=== PATIENT | female | born 1975 | race Caucasian/White ===

== ENCOUNTER 2017-02-25 09:20 | Emergency (ER) | payer OTHER, MEDICAID | END 2017-02-25 11:15 | disposition home or self-care (01) | LOC: FTE 09:20 | DX: J06.9 Acute upper respiratory infection, unspecified (principal); R07.9 Chest pain, unspecified | CPT/HCPCS: 93005; 99284-25 ==

== ENCOUNTER 2017-05-21 11:47 | Emergency (ER) | payer OTHER ==
[2017-05-21 13:07] LABS: ADD MAN DIFF? NO
[2017-05-21 13:10] LABS: BASOPHILS % 0.2 % (0.0-2.0); EOSINOPHILS # 0.1 10^3/ul (0.0-0.5); HEMATOCRIT 39.7 % (37.0-47.0); HEMOGLOBIN 13.9 g/dl (12.0-16.0); LYMPHOCYTES # 1.4 10^3/ul (0.8-2.9); LYMPHOCYTES % 13.9 % (15.0-51.0); MEAN CORPUSCULAR HEMOGLOBIN 30.4 pg (29.0-33.0); MEAN CORPUSCULAR VOLUME 86.9 fl (82.0-101.0); MEAN PLATELET VOLUME 10.5 fl (7.4-10.4); MONOCYTE # 0.7 10^3/ul (0.3-0.9); MONOCYTES % 7.6 % (0.0-11.0); NEUTROPHIL # 7.5 10^3/ul (1.6-7.5); PLATELET COUNT 306 10^3/UL (140-415); RED BLOOD COUNT 4.57 10^6/ul (4.20-5.40); RED CELL DISTRIBUTION WIDTH 13.4 % (11.5-14.5)
[2017-05-21 13:10] LABS: WHITE BLOOD COUNT 9.8 10^3/ul (4.8-10.8)
[2017-05-21] MEDS: SOD CHLORIDE 0.9% 1,000 ML IV (13:13)
[2017-05-21] MEDS: ONDANSETRON 4 MG INJ IV (13:15)
[2017-05-21] MEDS: HYDROmorphONE 0.5 MG/0.5 ML SYG IV (13:16)
[2017-05-21] MEDS: FAMOTIDINE 20 MG INJ IV (13:16)
[2017-05-21] MEDS: ACETAMINOPHEN 325 MG TAB PO (13:16)
[2017-05-21 13:50] LABS: ADD UMIC YES; UR ASCORBIC ACID NEGATIVE (NEGATIVE); UR BACTERIA FEW /HPF (NONE SEEN); UR BILIRUBIN (Dip) NEGATIVE (NEGATIVE); UR BLOOD (Dip) NEGATIVE (NEGATIVE); UR CLARITY CLEAR (CLEAR); UR COLOR YELLOW (YELLOW); UR GLUCOSE (Dip) NEGATIVE (NEGATIVE); UR KETONES (Dip) NEGATIVE (NEGATIVE); UR LEUKOCYTE ESTERASE (Dip) 2+ Leu/ul (NEGATIVE); UR NITRITE (Dip) NEGATIVE (NEGATIVE); UR RBC 3 /HPF (0-5); UR SPECIFIC GRAVITY (Dip) 1.011 (1.003-1.030); UR TOTAL PROTEIN (Dip) NEGATIVE (NEGATIVE); UR UROBILINOGEN (Dip) NEGATIVE (NEGATIVE); UR WBC 19 /HPF (0-5)
[2017-05-21 14:16] LABS: ALANINE AMINOTRANSFERASE 482 IU/L (13-69); ALBUMIN 3.8 g/dl (3.3-4.9); ALBUMIN/GLOBULIN RATIO 1.08; ALKALINE PHOSPHATASE 394 IU/L (42-121); ANION GAP 16 (8-16); ASPARTATE AMINO TRANSFERASE 256 IU/L (15-46); BILIRUBIN,INDIRECT 0.7 mg/dl (0-1.1); BILIRUBIN,TOTAL 0.7 mg/dl (0.2-1.3); BLOOD UREA NITROGEN 9 mg/dl (7-20); CALCIUM 8.7 mg/dl (8.4-10.2); CARBON DIOXIDE 22 mmol/L (21-31); CHLORIDE 109 mmol/L (97-110); CREATININE 0.68 mg/dl (0.44-1.00); GLUCOSE 131 mg/dl (70-220); LIPASE 254 U/L (23-300); POTASSIUM 3.5 mmol/L (3.5-5.1); SODIUM 143 mmol/L (135-144); TOTAL PROTEIN 7.3 g/dl (6.1-8.1)
[2017-05-21] MEDS: CEFTRIAXONE 1 GM/50 ML (PMX) 50 ML IVPB (14:19)
== END 2017-05-21 16:29 | disposition home or self-care (01) ==
LOC: FTE 11:47
DX: N39.0 Urinary tract infection, site not specified (principal); R74.0 Nonspecific elevation of levels of transaminase and lactic acid dehydrogenase [LDH]
CPT/HCPCS: 36415; 76705; 80053; 81001; 81025; 83690; 85025; 96374; 96375; 99285-25

== ENCOUNTER 2017-05-25 20:38 | Emergency (ER) | payer OTHER ==
[2017-05-26] MEDS: ONDANSETRON 4 MG INJ IV ×2 (01:18→04:27)
[2017-05-26] MEDS: SOD CHLORIDE 0.9% 1,000 ML IV (01:18)
[2017-05-26] MEDS: HYDROmorphONE 0.5 MG/0.5 ML SYG IV ×2 (01:19→04:28)
[2017-05-26] MEDS: IOHEXOL 300MG/ML 150 ML BTL (02:12)
[2017-05-26] MEDS: SOD CHLORIDE 0.9% 100 ML (02:12)
[2017-05-26 02:25] LABS: ADD MAN DIFF? NO
[2017-05-26 02:32] LABS: BASOPHILS % 0.1 % (0.0-2.0); HEMATOCRIT 40.3 % (37.0-47.0); HEMOGLOBIN 14.2 g/dl (12.0-16.0); LYMPHOCYTES # 0.9 10^3/ul (0.8-2.9); MEAN CORPUSCULAR HEMOGLOBIN 30.3 pg (29.0-33.0); MEAN CORPUSCULAR HGB CONC 35.2 g/dl (32.0-37.0); MEAN CORPUSCULAR VOLUME 86.1 fl (82.0-101.0); MONOCYTE # 0.4 10^3/ul (0.3-0.9); NEUTROPHIL # 13.4 10^3/ul (1.6-7.5); NEUTROPHILS % 90.6 % (39.0-77.0); PLATELET COUNT 398 10^3/UL (140-415); RED BLOOD COUNT 4.68 10^6/ul (4.20-5.40); RED CELL DISTRIBUTION WIDTH 12.8 % (11.5-14.5)
[2017-05-26 02:32] LABS: WHITE BLOOD COUNT 14.8 10^3/ul (4.8-10.8)
[2017-05-26 02:46] LABS: ALANINE AMINOTRANSFERASE 444 IU/L (13-69); ALBUMIN 4.5 g/dl (3.3-4.9); ALBUMIN/GLOBULIN RATIO 1.15; ALKALINE PHOSPHATASE 485 IU/L (42-121); ANION GAP 22 (8-16); ASPARTATE AMINO TRANSFERASE 272 IU/L (15-46); BILIRUBIN,INDIRECT 1.2 mg/dl (0-1.1); BILIRUBIN,TOTAL 1.9 mg/dl (0.2-1.3); BLOOD UREA NITROGEN 13 mg/dl (7-20); CALCIUM 9.8 mg/dl (8.4-10.2); CARBON DIOXIDE 22 mmol/L (21-31); CHLORIDE 106 mmol/L (97-110); CREATININE 0.71 mg/dl (0.44-1.00); GLUCOSE 181 mg/dl (70-220); LIPASE 225 U/L (23-300); POTASSIUM 3.7 mmol/L (3.5-5.1); SODIUM 146 mmol/L (135-144); TOTAL PROTEIN 8.4 g/dl (6.1-8.1)
== END 2017-05-26 05:10 | disposition short-term general hospital (02) ==
LOC: E/R 20:38
DX: K80.50 Calculus of bile duct without cholangitis or cholecystitis without obstruction (principal); R94.5 Abnormal results of liver function studies
CPT/HCPCS: 36415; 74177; 80053; 83690; 85025; 96374; 96375; 96376; 99285-25